=== PATIENT | male | born 1985 | race Caucasian/White ===

== ENCOUNTER 2016-12-11 11:45 | Inpatient (IN) | payer MEDICARE, MEDICAID ==
[~2016-12-11] VITALS: Ht 185.4 cm; Wt 76.9 kg
[2016-12-11 12:13] LABS: BASOPHILS % (AUTO) 0.5 % (0.0-2.0); EOSINOPHILS % (AUTO) 0.4 % (1.0-6.0); HEMATOCRIT 38.7 % (41-53); HEMOGLOBIN 13.3 g/dL (13.5-17.5); LYMPHOCYTES # (AUTO) 2.4 K/uL (1.0-4.8); LYMPHOCYTES % (AUTO) 27.7 % (22.0-44.0); MEAN CORPUSCULAR HEMOGLOBIN 29.7 pg (26.0-34.0); MEAN CORPUSCULAR HGB CONC 34.3 G/dL (31.0-37.0); MEAN CORPUSCULAR VOLUME 87 fL (80-100); MONOCYTES # (AUTO) 0.4 K/uL (0.1-1.0); NEUTROPHILS # (AUTO) 5.7 K/uL (1.8-7.7); NEUTROPHILS % (AUTO) 66.4 % (40.0-70.0); PLATELET COUNT (AUTO) 277 K/uL (150-450); RED BLOOD CELL COUNT(AUTO) 4.47 MIL/uL (4.50-5.90); RED CELL DISTRIBUTION WIDTH 16.2 % (11.5-14.5); WHITE BLOOD COUNT (AUTO) 8.6 K/uL (4.5-11.0)
[2016-12-11 12:30] LABS: ANION GAP 8 mmol/L (8-16); CALCIUM, TOTAL 9.4 mg/dL (8.8-10.5); CARBON DIOXIDE 27 mmol/L (22-29); CHLORIDE 107 mmol/L (98-107); CREATININE 0.91 mg/dL (0.60-1.30); GLOMERULAR FILTR. RATE CALC > 60 mL/min (>60); POTASSIUM 4.4 mmol/L (3.5-5.1); SODIUM SERUM 142 mmol/L (136-145); UREA NITROGEN, BLOOD 20 mg/dL (7-18)
[2016-12-11 12:31] LABS: ALANINE AMINOTRANSFERASE 26 U/L (12-78); ALBUMIN 3.9 g/dL (3.4-5.0); ASPARTATE AMINOTRANSFERASE 20 U/L (15-37); BILIRUBIN,TOTAL 0.2 mg/dL (0.1-1.0); TOTAL PROTEIN, SERUM 7.5 g/dL (6.4-8.2)
[2016-12-11] MEDS ORDERED: DiphenhydrAMINE HCL 50 MG/ML VIAL IM ONE (13:00)
[2016-12-11] MEDS ORDERED: LORazepam 2 MG/ML VIAL IM ONE (13:00)
[2016-12-11] MEDS ORDERED: HALOPERIDOL LACTATE 5 MG/ML VIAL IM ONE (13:00)
[2016-12-11] MEDS ORDERED: HALOPERIDOL 5 MG TABLET PO PRN (13:30)
[2016-12-11] MEDS ORDERED: ZOLPIDEM TARTRATE 10 MG TABLET PO PRN (13:30)
[2016-12-11] MEDS ORDERED: ACETAMINOPHEN 325 MG TABLET PO PRN (17:00)
[2016-12-11 17:47] LABS: FERRITIN 41 ng/mL (26-388)
[2016-12-11 18:02] VITALS: BP 111/82
[2016-12-12 07:02] LABS: HEMOGLOBIN A1C 5.6 % (4.5-6.2)
[2016-12-12 07:06] LABS: THYROID STIMULATING HORMONE 0.6 uIU/mL (0.36-3.74)
[2016-12-12 08:15] VITALS: BP 136/89
[2016-12-12] MEDS: LORazepam 2 MG TABLET PO PRN ×2 (09:01→16:32)
[2016-12-12 09:44] LABS: APPEARANCE,URINE CLEAR (CLEAR); GLUCOSE, URINE (UA) NEGATIVE (NEGATIVE); KETONES,URINE NEGATIVE (NEGATIVE); LEUKOCYTE ESTERASE ,URINE NEGATIVE (NEGATIVE); OCCULT BLOOD,URINE NEGATIVE (NEGATIVE); PROTEIN,URINE NEGATIVE (NEGATIVE)
[2016-12-12 09:45] LABS: ADD UA MICROSCOPIC NO
[2016-12-12] MEDS: HALOPERIDOL 5 MG TABLET PO SCH (16:32)
[2016-12-12] MEDS: BENZTROPINE MESYLATE 0.5 MG TABLET PO SCH (16:32)
[2016-12-12 19:11] VITALS: BP 148/85
[2016-12-13 01:30] VITALS: BP 113/59
[2016-12-13 08:15] VITALS: BP 122/75
[2016-12-13] MEDS: HALOPERIDOL 5 MG TABLET PO SCH ×2 (09:11→17:34)
[2016-12-13] MEDS: BENZTROPINE MESYLATE 0.5 MG TABLET PO SCH ×2 (09:11→17:34)
[2016-12-13] MEDS: LORazepam 2 MG TABLET PO PRN (14:05)
[2016-12-13 19:12] VITALS: BP 132/75
[2016-12-14 08:24] VITALS: BP 142/86
[2016-12-14] MEDS: BENZTROPINE MESYLATE 0.5 MG TABLET PO SCH ×2 (08:55→17:50)
[2016-12-14] MEDS: HALOPERIDOL 5 MG TABLET PO SCH ×2 (08:55→17:50)
[2016-12-14] MEDS: IBUPROFEN 400 MG TABLET PO PRN (13:54)
[2016-12-14 14:00] VITALS: BP 142/89
[2016-12-14 15:14] VITALS: BP 135/87
[2016-12-14 16:15] VITALS: BP 112/62
[2016-12-15 02:20] VITALS: BP 119/76
[2016-12-15 03:37] VITALS: BP 156/75
[2016-12-15] MEDS: IBUPROFEN 400 MG TABLET PO PRN (03:37)
[2016-12-15 08:34] VITALS: BP 149/91
[2016-12-15] MEDS: BENZTROPINE MESYLATE 0.5 MG TABLET PO SCH (08:44)
[2016-12-15] MEDS: HALOPERIDOL 5 MG TABLET PO SCH (08:44)
[2016-12-15] MEDS ORDERED: BENZ0.5T6 PO (12:00)
[2016-12-15] MEDS ORDERED: HALO5 PO (12:02)
== END 2016-12-15 14:30 | disposition home or self-care (01) | DRG 885 ==
LOC: EMS 11:46 → EDBD 11:46 → 3EI 14:20
PROVIDERS: ADMIT Psychiatry & Neurology Psychiatry; ATTEND Psychiatry & Neurology Psychiatry
DX: F29 Unspecified psychosis not due to a substance or known physiological condition (principal); D64.9 Anemia, unspecified; F15.90 Other stimulant use, unspecified, uncomplicated; F41.9 Anxiety disorder, unspecified; Z59.0 Homelessness
CPT/HCPCS: 82728; 83036; 83540; 83550; 84443; 96372; 99285; G0480; J1200; J1630; J2060

== ENCOUNTER 2016-12-25 12:02 | Emergency (ER) | payer MEDICARE, MEDICAID ==
[~2016-12-25] VITALS: Ht 185.4 cm; Wt 86.4 kg
[~2016-12-25 12:02] MED LIST: BENZ0.5T6 PO; HALO5 PO
[2016-12-25 14:55] LABS: BASOPHILS % (AUTO) 0.6 % (0.0-2.0); EOSINOPHILS % (AUTO) 1.8 % (1.0-6.0); HEMATOCRIT 38.3 % (41-53); HEMOGLOBIN 12.9 g/dL (13.5-17.5); LYMPHOCYTES # (AUTO) 3.2 K/uL (1.0-4.8); LYMPHOCYTES % (AUTO) 35.7 % (22.0-44.0); MEAN CORPUSCULAR HEMOGLOBIN 29.9 pg (26.0-34.0); MEAN CORPUSCULAR HGB CONC 33.8 G/dL (31.0-37.0); MEAN CORPUSCULAR VOLUME 89 fL (80-100); MONOCYTES # (AUTO) 0.4 K/uL (0.1-1.0); NEUTROPHILS # (AUTO) 5.1 K/uL (1.8-7.7); NEUTROPHILS % (AUTO) 56.9 % (40.0-70.0); PLATELET COUNT (AUTO) 496 K/uL (150-450); RED BLOOD CELL COUNT(AUTO) 4.32 MIL/uL (4.50-5.90); RED CELL DISTRIBUTION WIDTH 15.8 % (11.5-14.5); WHITE BLOOD COUNT (AUTO) 8.9 K/uL (4.5-11.0)
[2016-12-25 15:04] LABS: ANION GAP 10 mmol/L (8-16); CALCIUM, TOTAL 8.9 mg/dL (8.8-10.5); CARBON DIOXIDE 27 mmol/L (22-29); CHLORIDE 104 mmol/L (98-107); CREATININE 0.76 mg/dL (0.60-1.30); GLOMERULAR FILTR. RATE CALC > 60 mL/min (>60); POTASSIUM 3.6 mmol/L (3.5-5.1); SODIUM SERUM 141 mmol/L (136-145); UREA NITROGEN, BLOOD 13 mg/dL (7-18)
[2016-12-25 15:09] LABS: ALANINE AMINOTRANSFERASE 20 U/L (12-78); ALBUMIN 3.3 g/dL (3.4-5.0); ASPARTATE AMINOTRANSFERASE 19 U/L (15-37); BILIRUBIN,TOTAL 0.4 mg/dL (0.1-1.0); TOTAL PROTEIN, SERUM 6.6 g/dL (6.4-8.2)
[2016-12-25] MEDS ORDERED: LORazepam 2 MG TABLET PO ONE (16:45)
[2016-12-25 18:23] VITALS: BP 141/79
== END 2016-12-25 18:25 | disposition home or self-care (01) ==
LOC: EMS 12:03
DX: F29 Unspecified psychosis not due to a substance or known physiological condition (principal); F31.9 Bipolar disorder, unspecified; F15.10 Other stimulant abuse, uncomplicated
CPT/HCPCS: 36415; 80053; 85025; 99285; G0480